=== PATIENT | male | born 1995 | race African-American/Black ===

== ENCOUNTER 2016-09-21 14:32 | Emergency (ER) | payer BC ==
[~2016-09-21] VITALS: Ht 185.4 cm; Wt 67.0 kg
[2016-09-21 14:33] VITALS: BP 134/82; PULSE 70; RESP 20; TEMP 98; O2SAT 99
--- NOTE | 2016-09-21 14:50 | PD ---
Physical Exam Date Seen by Provider: Sep 21, 2016 Time Seen by Provider: 14:48 Narrative 21 [facility] POS CP,SOB SCHWARTZ. NO RISK FACTORS VSS. AWAITING BED PLACEMENT Data Data Last Documented VS Vital Signs Date Time Temp Pulse Resp B/P Pulse Ox O2 Delivery O2 Flow Rate FiO2 09/21/16 14:33 98.0 70 20 134/82 99 Room Air MDM Medical Record Reviewed: Yes Supervised Visit with TOMI: Yes Kings Desir Sep 21, 2016 14:50
[2016-09-21 20:34] VITALS: BP 118/76; PULSE 69; RESP 21; O2SAT 97
[2016-09-21] MEDS ORDERED: SODIUM CHLORIDE 0.9% FLUSH 10 ML FLUSH IVF PRN (20:45)
--- NOTE | 2016-09-21 20:51 | PD ---
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 Patient reports that for the past week he has been having intermittent chest tightness with shortness of breath feeling as though he is breathing through a straw. He was started on an albuterol inhaler without improvement in symptoms. He is a nonsmoker. No history of asthma. No known history of cardiac disease. No family history of cardiac disease. No fevers, chills, cough, or recent illness. No hemoptysis. PFSH Social History Tobacco Use: No Allergies-Medications (Allergen,Severity, Reaction): Coded Allergies: Amoxicillin (Verified Allergy, Severe, Hives, 09/21/16) Reported Meds & Prescriptions Reported Meds & Active Scripts Active Prednisone 50 Mg Tab 50 Mg PO DAILY 5 Days Reported Ventolin Hfa 18 GM Inh (Albuterol Sulfate) 90 Mcg/Act Aer 2 Puff INH Q4-6H PRN Zithromax Z-Jefferson (Azithromycin) 250 Mg Dspk 250 Mg PO DIRECTED 500 MG (2 tabs) day 1, then 1 tab days 2-5. Review of Systems Except as stated in HPI: all other systems reviewed are Neg Physical Exam Narrative GENERAL: Well-developed, well-nourished, thin, tall, no distress. SKIN: Focused skin assessment warm/dry. HEAD: Atraumatic. Normocephalic. EYES: Pupils equal and round. No scleral icterus. No injection or drainage. ENT: Mucous membranes pink and moist. NECK: Trachea midline. No JVD. CARDIOVASCULAR: Regular rate and rhythm. RESPIRATORY: Mild respiratory distress. Speaking full sentences. Lungs are clear and equal bilaterally. No wheezes, rales, or rhonchi. GASTROINTESTINAL: Abdomen soft, non-tender, nondistended. MUSCULOSKELETAL: No obvious deformities. No clubbing. No cyanosis. No edema. NEUROLOGICAL: Awake and alert. No obvious cranial nerve deficits. Motor grossly within normal limits. Normal speech. PSYCHIATRIC: Appropriate mood and affect; insight and judgment normal. Data Data Last Documented VS Vital Signs Date Time Temp Pulse Resp B/P Pulse Ox O2 Delivery O2 Flow Rate FiO2 09/21/16 21:54 91 24 136/73 100 09/21/16 21:12 Room Air 09/21/16 14:33 98.0 Orders Electrocardiogram (09/21/16 14:50) Complete Blood Count With Diff (09/21/16 20:45) Comprehensive Metabolic Panel (09/21/16 20:45) D-Dimer (09/21/16 20:45) Act Partial Throm Time (Ptt) (09/21/16 20:45) Prothrombin Time / Inr (Pt) (09/21/16 20:45) Ckmb (Isoenzyme) Profile (09/21/16 20:45) Troponin I (09/21/16 20:45) Iv Access Insert/Monitor (09/21/16 20:45) Electrocardiogram (09/21/16 20:45) Ecg Monitoring (09/21/16 20:45) Oximetry (09/21/16 20:45) Oxygen Administration (09/21/16 20:45) Chest, Single Ap (09/21/16 20:45) Sodium Chloride 0.9% Flush (Ns Flush) (09/21/16 20:45) Albuterol-Ipratropium Neb (Duoneb Neb) (09/21/16 20:45) CKMB (09/21/16 21:20) CKMB% (09/21/16 21:20) Sodium Chlor 0.9% 1000 Ml Inj (Ns 1000 M (09/21/16 22:45) Prednisone (Deltasone) (09/21/16 22:45) Labs Laboratory Tests Test 09/21/16 21:20 White Blood Count 9.2 TH/MM3 Red Blood Count 6.98 MIL/MM3 Hemoglobin 17.2 GM/DL Hematocrit 52.4 % Mean Corpuscular Volume 75.0 FL Mean Corpuscular Hemoglobin 24.6 PG Mean Corpuscular Hemoglobin 32.8 % Concent Red Cell Distribution Width 15.6 % Platelet Count 246 TH/MM3 Mean Platelet Volume 9.2 FL Neutrophils (%) (Auto) 48.2 % Lymphocytes (%) (Auto) 35.3 % Monocytes (%) (Auto) 4.4 % Eosinophils (%) (Auto) 11.5 % Basophils (%) (Auto) 0.6 % Neutrophils # (Auto) 4.4 TH/MM3 Lymphocytes # (Auto) 3.3 TH/MM3 Monocytes # (Auto) 0.4 TH/MM3 Eosinophils # (Auto) 1.1 TH/MM3 Basophils # (Auto) 0.1 TH/MM3 CBC Comment AUTO DIFF Differential Comment AUTO DIFF CONFIRMED Platelet Estimate NORMAL Platelet Morphology Comment NORMAL Ovalocytes 1+ Prothrombin Time 11.9 SEC Prothromb Time International 1.1 RATIO Ratio Activated Partial 28.0 SEC Thromboplast Time D-Dimer Quantitative (PE/DVT) LESS THAN 0.19 MG/L FEU Sodium Level 141 MEQ/L Potassium Level 3.5 MEQ/L Chloride Level 99 MEQ/L Carbon Dioxide Level 25.3 MEQ/L Anion Gap 17 MEQ/L Blood Urea Nitrogen 15 MG/DL Creatinine 1.40 MG/DL Estimat Glomerular Filtration 77 ML/MIN Rate Random Glucose 92 MG/DL Calcium Level 10.5 MG/DL Total Bilirubin 1.0 MG/DL Aspartate Amino Transf 25 U/L (AST/SGOT) Alanine Aminotransferase 35 U/L (ALT/SGPT) Alkaline Phosphatase 103 U/L Total Creatine Kinase 180 U/L Creatine Kinase MB 1.4 NG/ML Troponin I LESS THAN 0.02 NG/ML Total Protein 9.0 GM/DL Albumin 5.1 GM/DL [facility] [place] Medical Decision Making Medical Screen Exam Complete: Yes Emergency Medical Condition: Yes Interpretation(s) EKG: Sinus, rate 60, borderline right axis deviation, normal intervals, no acute ischemic abnormality. Differential Diagnosis ACS, pneumothorax, pericarditis, PE, pneumonia, anxiety Narrative Course Initial vital signs show heart rate 70, blood pressure 134/82, pulse ox 99% on room air, oral temp of 98F. CBC shows WBC 9.2, hemoglobin 17.2, hematocrit 52.4, platelets 246. CMP is remarkable for creatinine 1.4, GFR 77, calcium 10.5, otherwise unremarkable. Cardiac enzymes are negative. D-dimer is 0.19. Chest x-ray: No acute cardio pulmonary disease. The patient was given 3 DuoNeb treatments and oral prednisone and is feeling much better. He was also given a liter of normal saline IV. He states he was started on a Z-Jefferson and I encouraged him to continue this medication. He is in no respiratory distress. No retractions. He is stable for discharge home with outpatient follow-up. I will given the name of the supply chain analyst on-call with whom to follow-up with should his symptoms not improve. PMD follow-up this week. He was informed on when to return to the emergency department. He verbalizes understanding and agreement with plan. Diagnosis Primary Impression: Shortness of breath Referrals: Abe Wilkinson MD 1 week supply chain analyst Primary Care Physician 3 days Additional Instructions: Follow-up with a primary care physician this week. Follow-up with supply chain analyst Dr. Wilkinson or a supply chain analyst of your choice this week. Return to the emergency department for worsening symptoms or any other concerns. Scripts Prednisone 50 Mg Tab50 Mg PO DAILY 5 Days Ref 0 Prov:Johann Colindres MD 09/21/16 Disposition: 01 DISCHARGE HOME Condition: Stable Johann Colindres MD Sep 21, 2016 20:51
[2016-09-21] MEDS: RESP: ALBUTEROL 2.5 MG/IPRATROPIUM 0.5 MG NEB (SCH) INH (21:04)
--- NOTE | 2016-09-21 21:04 | RADRPT ---
EXAM DATE/TIME: 09/21/2016 20:44 [place] COMPARISON: No previous studies available for comparison. INDICATIONS : Short of breath MEDICAL HISTORY : None. SURGICAL HISTORY : None. ENCOUNTER: Initial ACUITY: 1 week PAIN SCORE: 0/10 LOCATION: chest FINDINGS: The lungs are clear without infiltrate, nodule, or mass. There is no appreciable pleural effusion fo r technique. Heart and mediastinum are unremarkable. CONCLUSION: No acute cardiopulmonary disease. Librado Williamson MD on September 21, 2016 at 21:02 Board Certified Radiologist. This report was verified electronically.
[2016-09-21 21:12] VITALS: O2SAT 97
[2016-09-21 21:50] LABS: AUTOMATED NEUTROPHIL # 4.4 TH/MM3 (1.8-7.7); BASOPHIL # 0.1 TH/MM3 (0-0.2); BASOPHIL % 0.6 % (0.0-2.0); EOSINOPHIL # 1.1 TH/MM3 (0-0.4); EOSINOPHIL % 11.5 % (0.0-4.0); HEMATOCRIT 52.4 % (39.0-51.0); LYMPH % 35.3 % (9.0-44.0); LYMPHOCYTE # 3.3 TH/MM3 (1.0-4.8); MEAN CORPUSCULAR HEMOGLOBIN 24.6 PG (27.0-34.0); MEAN CORPUSCULAR HGB CONC 32.8 % (32.0-36.0); MONO % 4.4 % (0.0-8.0); NEUT % 48.2 % (16.0-70.0); PLATELET COUNT 246 TH/MM3 (150-450); RED BLOOD COUNT 6.98 MIL/MM3 (4.50-5.90); RED CELL DISTRIBUTION WIDTH 15.6 % (11.6-17.2); WHITE BLOOD COUNT 9.2 TH/MM3 (4.0-11.0)
[2016-09-21 21:54] VITALS: BP 136/73; PULSE 91; RESP 24; O2SAT 100
[2016-09-21 21:55] LABS: HEMO FLAGS AUTO DIFF
[2016-09-21] MEDS ORDERED: VENTAER INH (21:55)
[2016-09-21] MEDS ORDERED: ZITHTAB PO (21:55)
[2016-09-21 22:09] LABS: ANION GAP 17 MEQ/L (5-15); AST (GOT) 25 U/L (15-37); BICARBONATE 25.3 MEQ/L (21.0-32.0); BLOOD UREA NITROGEN 15 MG/DL (7-18); CHLORIDE 99 MEQ/L (98-107); GLOMERULAR FILTRATION RATE 77 ML/MIN (>89); POTASSIUM 3.5 MEQ/L (3.5-5.1); SODIUM (NA) 141 MEQ/L (136-145)
[2016-09-21 22:10] LABS: INTERNATIONAL NORMALIZED RATIO 1.1 RATIO; PROTHROMBIN TIME - PATIENT 11.9 SEC (9.8-11.6)
[2016-09-21 22:15] LABS: ALKALINE PHOSPHATASE 103 U/L (45-117); ALT (GPT) 35 U/L (12-78); CREATINE KINASE 180 U/L (39-308)
[2016-09-21 22:16] LABS: OVALOCYTES 1+ (NORMAL); PLATELET ESTIMATE SMEAR NORMAL (NORMAL); PLATELET MORPHOLOGY NORMAL (NORMAL); SCAN/DIFF AUTO DIFF CONFIRMED
[2016-09-21 22:28] LABS: CKMB 1.4 NG/ML (0.5-3.6)
[2016-09-21] MEDS ORDERED: PRED50 PO (22:35)
[2016-09-21] MEDS ORDERED: SODIUM CHLOR 0.9% 1000 ML INJ 1,000 ML IV ONE (22:45)
[2016-09-21] MEDS ORDERED: predniSONE 20 MG TAB PO ONE (22:45)
--- NOTE | 2016-09-22 10:28 | EKG ---
Date Performed: 09/21/2016 Time Performed: 15:13:53 PTAGE: 21 years EKG: Sinus rhythm WITH SINUS ARRHYTHMIA BORDERLINE RIGHT AXIS DEVIATION BORDERLINE ECG NO PREVIOUS TRACING DOCTOR: Morena Davis Interpretating Date/Time 09/22/2016 10:25:24
== END 2016-09-22 00:24 | disposition home or self-care (01) ==
LOC: NEPA 14:32
DX: R06.02 Shortness of breath (principal)
CPT/HCPCS: 71010; 80053; 82550; 82552; 84484; 85025; 85379; 85610; 85730; 93005; 94640; 94664; 99285; J7030; J7512